=== PATIENT | male | born 1960 | race Two or more races ===

== ENCOUNTER 2020-01-24 02:26 | Emergency (ER) | payer OTHER ==
[~2020-01-24] VITALS: Ht 167.6 cm; Wt 85.0 kg
[~2020-01-24 02:26] MED LIST: DIABETIC MEDS; HYDR-3965 PO; HYDR1TAB PO; IBUP-1984 PO; IBUP-812 PO; LISI-600 PO
[2020-01-24 04:12] LABS: BASOPHILS # (AUTO) 0.1 X10'3 (0-0.2); BASOPHILS % (AUTO) 0.7 % (0-1); EOSINOPHILS # (AUTO) 0.1 X10'3 (0-0.9); EOSINOPHILS % (AUTO) 1.2 % (0-6); HEMATOCRIT 25.4 % (42.0-52.0); HEMOGLOBIN 8.6 g/dl (14.0-17.9); LYMPHOCYTES # (AUTO) 1.2 X10'3 (1.1-4.8); LYMPHOCYTES % (AUTO) 14.4 % (21-51); MEAN CORPUSCULAR HEMOGLOBIN 32.5 PG (27.0-31.0); MEAN CORPUSCULAR HGB CONC 33.8 g/dL (33.0-36.5); MEAN PLATELET VOLUME 9.7 FL (7.4-10.4); MONOCYTES # (AUTO) 0.9 X10'3 (0-0.9); MONOCYTES % (AUTO) 10.2 % (2-12); NEUTROPHILS # (AUTO) 6.2 X10'3 (1.8-7.7); NEUTROPHILS % (AUTO) 73.5 % (42-75); PLATELET COUNT 205 X10'3 (140-440); RED BLOOD COUNT 2.65 X10'6 (4.70-6.10); RED CELL DISTRIBUTION WIDTH 13.5 % (11.5-14.5); WHITE BLOOD COUNT 8.4 X10'3 (4.5-11.0)
[2020-01-24 04:19] LABS: ALANINE AMINOTRANSFERASE 25 U/L (12-78); ALBUMIN 3.4 G/DL (3.4-5.0); ALBUMIN/GLOBULIN RATIO 0.8 (1.1-1.5); ALKALINE PHOSPHATASE 106 IU/L (46-116); ANION GAP 8 (8-16); ASPARTATE AMINO TRANSFERASE 12 U/L (10-37); BILIRUBIN,TOTAL 0.5 MG/DL (0.1-1.0); BLOOD UREA NITROGEN 66 MG/DL (7-18); BUN/CREATININE RATIO 6.5 (5.4-32.0); CALCIUM 9.2 MG/DL (8.5-10.1); CHLORIDE 105 MMOL/L (99-107); CREATININE 10.19 MG/DL (0.60-1.10); GLUCOSE 150 MG/DL (70-104); MAGNESIUM 2.4 MG/DL (1.5-2.4); PHOSPHORUS 3.2 MG/DL (2.3-4.5); SODIUM 141 MMOL/L (135-145); TOTAL CARBON DIOXIDE 28.2 MMOL/L (24-32); TOTAL PROTEIN 7.6 G/DL (6.4-8.2); eGFR 5 ML/MIN
[2020-01-24 05:32] VITALS: BP 158/67
== END 2020-01-24 05:27 | disposition home or self-care (01) ==
LOC: ER 02:27
DX: N18.6 End stage renal disease (principal); E87.5 Hyperkalemia; R06.00 Dyspnea, unspecified; E11.22 Type 2 diabetes mellitus with diabetic chronic kidney disease; I12.0 Hypertensive chronic kidney disease with stage 5 chronic kidney disease or end stage renal disease; Z79.899 Other long term (current) drug therapy; Z99.2 Dependence on renal dialysis
CPT/HCPCS: 36415; 80053; 83735; 84100; 85025; 93005; 99284

== ENCOUNTER 2023-07-16 17:00 | Inpatient (IN) | payer MEDICAID, OTHER ==
[~2023-07-16] VITALS: Ht 172.7 cm; Wt 85.0 kg
[~2023-07-16 17:00] MED LIST changes: +CefTRIAXone/D5W-Rocephin 1gm 50 ML IV SCH; -HYDR1TAB PO; -LISI-600 PO; +LISI20TA28 PO
[2023-07-16 19:10] LABS: BILIRUBIN,URINE NEGATIVE (Neg); CLARITY,URINE CLEAR (Clear); COLOR,URINE YELLOW (Yellow); GLUCOSE, URINE NEGATIVE (Neg); KETONES,URINE NEGATIVE (Neg); LEUKOCYTE ESTERASE ,URINE NEGATIVE (Neg); NITRITES, URINE NEGATIVE (Neg); OCCULT BLOOD,URINE NEGATIVE (Neg); PH,URINE 8.5 (4.8-8.0); PROTEIN,URINE 30 mg/dl (Neg); UROBILINOGEN,URINE 0.2 E.U/dL (0.2-1.0)
[2023-07-16 19:11] LABS: UA COLLECTION TYPE CLN CATCH MIDSTREAM
[2023-07-16 19:18] LABS: ALBUMIN 3.4 G/DL (3.4-5.0); ANION GAP 9 (8-16); BLOOD UREA NITROGEN 70 MG/DL (7-18); BUN/CREATININE RATIO 6.7 (10.0-20.0); CALCIUM 7.9 MG/DL (8.5-10.1); CHLORIDE 100 MMOL/L (99-107); CREATININE 10.47 MG/DL (0.60-1.10); GLUCOSE 148 MG/DL (70-104); LIPASE 82 U/L (16-77); MAGNESIUM 2.4 MG/DL (1.5-2.4); POTASSIUM 5.4 MMOL/L (3.5-5.1); SODIUM 136 MMOL/L (135-145); TOTAL CARBON DIOXIDE 26.6 MMOL/L (24-32); eCRCL 7 ML/MIN; eGFR 5 ML/MIN
[2023-07-16 19:18] LABS: BACTERIA,URINE NONE SEEN /HPF (Neg); RBC,URINE NONE SEEN /HPF (0-2); SQUAMOUS EPITHELIAL CELL,UR NONE SEEN /LPF (FEW); WBC,URINE 0-4 /HPF (0-4)
[2023-07-16] MEDS: amLODIPine 5mg tablet PO ONE ×2 (20:04→23:13)
[2023-07-16 20:53] LABS: BASOPHILS # (AUTO) 0.2 X10'3 (0-0.2); BASOPHILS % (AUTO) 2.6 % (0-1); EOSINOPHILS # (AUTO) 0.6 X10'3 (0-0.9); EOSINOPHILS % (AUTO) 7.8 % (0-6); HEMATOCRIT 25.5 % (42.0-52.0); HEMOGLOBIN 8.4 g/dl (14.0-17.9); LYMPHOCYTES % (AUTO) 12.6 % (21-51); MEAN CORPUSCULAR HEMOGLOBIN 32.5 PG (27.0-31.0); MEAN CORPUSCULAR HGB CONC 32.9 g/dL (33.0-36.5); MEAN CORPUSCULAR VOLUME 98.8 FL (78-98); MEAN PLATELET VOLUME 9.6 FL (7.4-10.4); MONOCYTES # (AUTO) 0.7 X10'3 (0-0.9); MONOCYTES % (AUTO) 8.6 % (2-12); NEUTROPHILS # (AUTO) 5.5 X10'3 (1.8-7.7); NEUTROPHILS % (AUTO) 68.4 % (42-75); PLATELET COUNT 185 X10'3 (140-440); RED BLOOD COUNT 2.58 X10'6 (4.70-6.10); RED CELL DISTRIBUTION WIDTH 16.2 % (11.5-14.5)
[2023-07-16 21:02] LABS: ANISOCYTOSIS 1+; PLATELET ESTIMATE NORMAL; TOTAL CELLS COUNTED 100
[2023-07-16] MEDS: ipratropium/albuterol 3ml nebule NEB ONE (22:47)
[2023-07-16 22:54] VITALS: PULSE 67; O2SAT 94
[2023-07-16] MEDS ORDERED: magnesium 2GM in 50ml NS 50 ML IV PRN (22:55)
[2023-07-16] MEDS ORDERED: magnesium 4gm in 100ml NS 100 ML IV PRN (22:55)
[2023-07-16] MEDS ORDERED: mag hydrox/Alum hydrox/simeth 30ml oral suspension PO PRN (22:55)
[2023-07-16] MEDS ORDERED: potassium Cl 20 mEq SR tablet PO PRN ×2 (22:55)
[2023-07-16] MEDS ORDERED: magnesium Cl slow-release 64mg tablet PO PRN (22:55)
[2023-07-16] MEDS ORDERED: ondansetron/PF 4mg/2ml inj IV PRN (22:55)
[2023-07-16] MEDS ORDERED: potassium Cl 40MEQ/1/2NS 520ml 520 ML IV PRN (22:55)
[2023-07-16] MEDS ORDERED: acetaminophen 325mg tablet PO PRN (22:55)
[2023-07-16 22:57] VITALS: PULSE 69; RESP 18; O2SAT 94
[2023-07-16] MEDS ORDERED: hyDRALAzine 10mg tablet PO SCH (23:00)
[2023-07-16] MEDS ORDERED: ipratropium/albuterol 3ml nebule NEB PRN (23:00)
[2023-07-16] MEDS: CefTRIAXone 2gm/D5W 50ml BAG 50 ML IV ONE (23:01)
[2023-07-16] MEDS: furosemide 10 MG/1 ML 10ml inj IV ONE (23:22)
[2023-07-16 23:29] LABS: HEMOGLOBIN A1C 5.3 % (4.5-6.2)
[2023-07-16] MEDS ORDERED: DEXTROSE 15 GM of carb/4 tabs (each vial/BOTTLE has 4 tablets) PO PRN ×2 (23:45)
[2023-07-16] MEDS ORDERED: dextrose 50%-water 50ml dispensing syringe IV PRN ×2 (23:45)
[2023-07-16] MEDS ORDERED: glucagon, human recombinant 1mg kit SUBCUT PRN (23:45)
[2023-07-17] VITALS (16 sets, daily range): BP systolic 153–198; BP diastolic 56–112; PULSE 66–83; RESP 14–22; TEMP 97.9–98.4; O2SAT 92–98
[2023-07-17] MEDS: methylPREDNISolone sod succ 125mg/2ml vial IV ONE (00:08)
[2023-07-17] MEDS: azithromycin/NS 500mg/250ml 250 ML IV SCH ×2 (00:11→18:43)
[2023-07-17] MEDS ORDERED: HYDR25TA90 PO (01:46)
[2023-07-17] MEDS ORDERED: AMLO10TA5 PO (01:46)
[2023-07-17] MEDS: hydrALAZINE 25 MG tablet PO SCH (01:55)
[2023-07-17 07:49] LABS: BASOPHILS # (AUTO) 0.1 X10'3 (0-0.2); EOSINOPHILS % (AUTO) 0.3 % (0-6); HEMATOCRIT 24.9 % (42.0-52.0); HEMOGLOBIN 8.4 g/dl (14.0-17.9); LYMPHOCYTES # (AUTO) 0.2 X10'3 (1.1-4.8); LYMPHOCYTES % (AUTO) 3.3 % (21-51); MEAN CORPUSCULAR HEMOGLOBIN 33.2 PG (27.0-31.0); MEAN CORPUSCULAR HGB CONC 33.9 g/dL (33.0-36.5); MEAN CORPUSCULAR VOLUME 97.9 FL (78-98); MEAN PLATELET VOLUME 9.9 FL (7.4-10.4); MONOCYTES % (AUTO) 0.6 % (2-12); NEUTROPHILS % (AUTO) 94.8 % (42-75); PLATELET COUNT 174 X10'3 (140-440); RED BLOOD COUNT 2.55 X10'6 (4.70-6.10); RED CELL DISTRIBUTION WIDTH 16.1 % (11.5-14.5); WHITE BLOOD COUNT 7.4 X10'3 (4.5-11.0)
[2023-07-17] MEDS ORDERED: GLIM2TAB6 PO (07:58)
[2023-07-17] MEDS ORDERED: AMA1T PO (07:58)
[2023-07-17] MEDS ORDERED: K and/or MAG REPLACEMENT MC SCH (08:00)
[2023-07-17] MEDS ORDERED: CefTRIAXone/D5W-Rocephin 1gm 50 ML IV SCH (08:00)
[2023-07-17] MEDS ORDERED: furosemide 10 MG/1 ML 10ml inj IV SCH (08:00)
[2023-07-17 08:19] LABS: ALANINE AMINOTRANSFERASE 29 U/L (12-78); ALBUMIN 3.4 G/DL (3.4-5.0); ALBUMIN/GLOBULIN RATIO 0.7 (1.1-1.5); ALKALINE PHOSPHATASE 160 IU/L (46-116); ANION GAP 13 (8-16); ASPARTATE AMINO TRANSFERASE 24 U/L (10-37); BILIRUBIN,TOTAL 0.8 MG/DL (0.1-1.0); BLOOD UREA NITROGEN 84 MG/DL (7-18); BUN/CREATININE RATIO 7.3 (10.0-20.0); CALCIUM 8.4 MG/DL (8.5-10.1); CHLORIDE 98 MMOL/L (99-107); CHOL/HDL RATIO 3.2 (0.00-4.99); CHOLESTEROL 128 MG/DL (0-200); CREATININE 11.58 MG/DL (0.60-1.10); GLUCOSE 219 MG/DL (70-104); HDL CHOLESTEROL 40 MG/DL (35-60); LDL CHOLESTEROL 70 MG/DL (50-100); MAGNESIUM 2.5 MG/DL (1.5-2.4); PHOSPHORUS 5.2 MG/DL (2.3-4.5); SODIUM 135 MMOL/L (135-145); TOTAL CARBON DIOXIDE 23.6 MMOL/L (24-32); TOTAL PROTEIN 8.5 G/DL (6.4-8.2); TRIGLYCERIDES 70 MG/DL (20-135); eCRCL 6 ML/MIN; eGFR 4 ML/MIN
[2023-07-17 08:20] LABS: POTASSIUM 6.7 MMOL/L (3.5-5.1)
[2023-07-17] MEDS: CALCIUM GLUC 1gm/50ml NACL,iso 50 ML IV ONE (08:35)
[2023-07-17] MEDS: FERROUS SULFATE 142 MG TABLET.ER (45mg elemental) PO SCH (08:40)
[2023-07-17] MEDS: heparin, porcine 5000 units/ml vial SQ SCH (08:40)
[2023-07-17] MEDS: folic acid 1mg tablet PO SCH (08:40)
[2023-07-17] MEDS: docusate sod 100mg capsule PO SCH (08:43)
[2023-07-17] MEDS: INSULIN LISPRO 100 UNIT/ML INSULN.PEN MULTI-DOSE SQ SCH ×2 (09:00→09:57)
[2023-07-17] MEDS ORDERED: albumin (human) 25% 100ml IV 100 ML IV PRN (10:20)
[2023-07-17] MEDS: mannitol 12.5gm/50mL VIAL IV ONE (12:42)
[2023-07-17] MEDS: heparin 1,000unit/ml 10ml vial 10 ML IV ONE (12:48)
[2023-07-17] MEDS: heparin 1,000 units/ml 10ml inj IV ONE (12:48)
[2023-07-17] MEDS: heparin 1,000 units/ml 10ml inj HE ONE ×2 (12:55)
[2023-07-17] MEDS: EPOETIN ALFA-EPBX 20,000 UNIT/ML 1 ML MDV IV ONE (12:56)
[2023-07-17] MEDS: CefTRIAXone/D5W-Rocephin 1gm 50 ML IV SCH (17:30)
[2023-07-17] MEDS ORDERED: insulin glargine (Lantus) pen - multi-dose SQ SCH (21:00)
[2023-07-17] MEDS: amLODIPine 5mg tablet PO ONE (21:07)
[2023-07-17] MEDS: hydrALAZINE 25 MG tablet PO ONE (22:31)
[2023-07-18] VITALS (24 sets, daily range): BP systolic 131–181; BP diastolic 51–96; PULSE 62–117; RESP 12–18; TEMP 97.9–99.1; O2SAT 93–100
[2023-07-18] MEDS: hydrALAZINE 25 MG tablet PO SCH (00:59)
[2023-07-18] MEDS ORDERED: albumin (human) 25% 100ml IV 100 ML IV PRN (06:45)
[2023-07-18 06:59] LABS: BASOPHILS # (AUTO) 0.1 X10'3 (0-0.2); BASOPHILS % (AUTO) 1.1 % (0-1); EOSINOPHILS % (AUTO) 0.6 % (0-6); HEMATOCRIT 24.1 % (42.0-52.0); HEMOGLOBIN 8.2 g/dl (14.0-17.9); LYMPHOCYTES # (AUTO) 1.2 X10'3 (1.1-4.8); LYMPHOCYTES % (AUTO) 13.8 % (21-51); MEAN CORPUSCULAR HEMOGLOBIN 33.2 PG (27.0-31.0); MEAN CORPUSCULAR HGB CONC 34.2 g/dL (33.0-36.5); MEAN CORPUSCULAR VOLUME 97.1 FL (78-98); MEAN PLATELET VOLUME 10.1 FL (7.4-10.4); MONOCYTES # (AUTO) 0.8 X10'3 (0-0.9); MONOCYTES % (AUTO) 8.7 % (2-12); NEUTROPHILS # (AUTO) 6.6 X10'3 (1.8-7.7); NEUTROPHILS % (AUTO) 75.8 % (42-75); PLATELET COUNT 179 X10'3 (140-440); RED BLOOD COUNT 2.48 X10'6 (4.70-6.10); RED CELL DISTRIBUTION WIDTH 15.2 % (11.5-14.5); WHITE BLOOD COUNT 8.7 X10'3 (4.5-11.0)
[2023-07-18 07:22] LABS: % IRON SATURATION 63 % (11-46); IRON 100 UG/DL (53-167); TOTAL IRON BINDING CAPACITY 160 UG/DL (259-388)
[2023-07-18] MEDS ORDERED: nitroGLYCERIN 0.4mg SUBLingual tab SL PRN (07:35)
[2023-07-18] MEDS ORDERED: aminophylline 250mg/10ml inj. IV PRN (07:35)
[2023-07-18] MEDS ORDERED: metoprolol tartrate 1mg/ml inj IV PRN (07:35)
[2023-07-18 07:47] LABS: ALANINE AMINOTRANSFERASE 22 U/L (12-78); ALBUMIN 3.2 G/DL (3.4-5.0); ALBUMIN/GLOBULIN RATIO 0.7 (1.1-1.5); ALKALINE PHOSPHATASE 145 IU/L (46-116); ANION GAP 8 (8-16); ASPARTATE AMINO TRANSFERASE 16 U/L (10-37); BILIRUBIN,TOTAL 0.7 MG/DL (0.1-1.0); BLOOD UREA NITROGEN 52 MG/DL (7-18); BUN/CREATININE RATIO 7.4 (10.0-20.0); CALCIUM 8.1 MG/DL (8.5-10.1); CHLORIDE 97 MMOL/L (99-107); CREATININE 7.04 MG/DL (0.60-1.10); GLUCOSE 153 MG/DL (70-104); MAGNESIUM 2.1 MG/DL (1.5-2.4); PHOSPHORUS 4.7 MG/DL (2.3-4.5); POTASSIUM 4.8 MMOL/L (3.5-5.1); SODIUM 133 MMOL/L (135-145); TOTAL PROTEIN 8.1 G/DL (6.4-8.2); eCRCL 10 ML/MIN; eGFR 8 ML/MIN
[2023-07-18 07:48] LABS: FERRITIN 1614 NG/ML (26-388)
[2023-07-18] MEDS ORDERED: sevelamer carbonate 800mg tablet PO SCH ×3 (08:30→12:30)
[2023-07-18] MEDS: amLODIPine 5mg tablet PO SCH (08:56)
[2023-07-18] MEDS: metoprolol succinate 25mg (24-HOUR) SR. Tablet PO SCH (08:57)
[2023-07-18] MEDS: sevelamer carbonate 800mg tablet PO SCH (09:55)
[2023-07-18] MEDS: regadenoson 0.4mg/5ml syringe IV PRN (13:38)
[2023-07-18] MEDS: heparin 1,000unit/ml 10ml vial 10 ML IV ONE (17:07)
[2023-07-18] MEDS: heparin 1,000 units/ml 10ml inj IV ONE (17:07)
[2023-07-19] VITALS (7 sets, daily range): BP systolic 145–162; BP diastolic 76–88; PULSE 68–86; RESP 16; TEMP 97.9–98.9; O2SAT 94–99
[2023-07-19 06:02] LABS: ALANINE AMINOTRANSFERASE 14 U/L (12-78); ALBUMIN/GLOBULIN RATIO 0.7 (1.1-1.5); ALKALINE PHOSPHATASE 128 IU/L (46-116); ANION GAP 11 (8-16); ASPARTATE AMINO TRANSFERASE 15 U/L (10-37); BILIRUBIN,TOTAL 0.7 MG/DL (0.1-1.0); BLOOD UREA NITROGEN 45 MG/DL (7-18); BUN/CREATININE RATIO 7.2 (10.0-20.0); CALCIUM 8.4 MG/DL (8.5-10.1); CHLORIDE 99 MMOL/L (99-107); CREATININE 6.22 MG/DL (0.60-1.10); GLUCOSE 124 MG/DL (70-104); MAGNESIUM 2.3 MG/DL (1.5-2.4); PHOSPHORUS 4.8 MG/DL (2.3-4.5); POTASSIUM 4.4 MMOL/L (3.5-5.1); SODIUM 136 MMOL/L (135-145); TOTAL CARBON DIOXIDE 25.7 MMOL/L (24-32); TOTAL PROTEIN 7.6 G/DL (6.4-8.2); eCRCL 12 ML/MIN; eGFR 9 ML/MIN
[2023-07-19 08:27] LABS: WHITE BLOOD COUNT 7.1 X10'3 (4.5-11.0)
[2023-07-19 08:29] LABS: HEMATOCRIT 24.4 % (42.0-52.0); MEAN CORPUSCULAR HEMOGLOBIN 31.8 PG (27.0-31.0); MEAN CORPUSCULAR HGB CONC 32.8 g/dL (33.0-36.5); MEAN PLATELET VOLUME 10.2 FL (7.4-10.4); PLATELET COUNT 190 X10'3 (140-440); RED BLOOD COUNT 2.52 X10'6 (4.70-6.10); RED CELL DISTRIBUTION WIDTH 15.2 % (11.5-14.5)
[2023-07-19 09:00] LABS: PLATELET ESTIMATE NORMAL; TOTAL CELLS COUNTED 100
[2023-07-19 09:01] LABS: HYPOCHROMASIA 1+; SCHISTOCYTES FEW
[2023-07-19] MEDS: metoprolol succinate 25mg (24-HOUR) SR. Tablet PO SCH (10:09)
[2023-07-19] MEDS: apixaban 2.5mg tablet PO SCH (10:10)
[2023-07-19] MEDS ORDERED: METO-395 PO (15:42)
[2023-07-19] MEDS ORDERED: CEFD300C3 PO (15:42)
[2023-07-19] MEDS ORDERED: APIX2.5T PO (15:46)
[2023-07-19] MEDS: azithromycin 250mg tablet PO SCH (16:20)
[2023-07-19 19:27] LABS: HBSAG SCREEN Negative (Negative)
== END 2023-07-19 17:27 | disposition home or self-care (01) | DRG 133 ==
LOC: ER 17:01 → ED HOLD 22:58 → EDBEDREQ 07-17 01:23 → PCU 3S 07-17 07:39
PROVIDERS: ADMIT Internal Medicine Critical Care Medicine; ATTEND Internal Medicine
PROC: 5A1D70Z Performance of Urinary Filtration, Intermittent, Less than 6 Hours Per Day (ICD-10-PCS; principal; 2023-07-17)
PROC: 5A1D70Z Performance of Urinary Filtration, Intermittent, Less than 6 Hours Per Day (ICD-10-PCS; 2023-07-18)
PROC: 4A12XM4 Monitoring of Cardiac Stress, External Approach (ICD-10-PCS; 2023-07-18)
PROC: 3E033HZ Introduction of Radioactive Substance into Peripheral Vein, Percutaneous Approach (ICD-10-PCS; 2023-07-18)
DX: J96.01 Acute respiratory failure with hypoxia (principal); I50.31 Acute diastolic (congestive) heart failure; N18.6 End stage renal disease; J18.9 Pneumonia, unspecified organism; E11.22 Type 2 diabetes mellitus with diabetic chronic kidney disease; D72.829 Elevated white blood cell count, unspecified; E87.5 Hyperkalemia; D64.9 Anemia, unspecified; I48.91 Unspecified atrial fibrillation; N40.0 Benign prostatic hyperplasia without lower urinary tract symptoms; K80.20 Calculus of gallbladder without cholecystitis without obstruction; I13.2 Hypertensive heart and chronic kidney disease with heart failure and with stage 5 chronic kidney disease, or end stage renal disease; T39.395A Adverse effect of other nonsteroidal anti-inflammatory drugs [NSAID], initial encounter; Y92.89 Other specified places as the place of occurrence of the external cause; Z99.2 Dependence on renal dialysis; Z91.199 Patient's noncompliance with other medical treatment and regimen due to unspecified reason; Z90.49 Acquired absence of other specified parts of digestive tract; Z79.84 Long term (current) use of oral hypoglycemic drugs; Z79.899 Other long term (current) drug therapy
CPT/HCPCS: 36415; 71045; 74176; 76700; 78452; 80048; 80053; 80061; 81001; 82728; 82948; 83036; 83540; 83550; 83605; 83690; 83735; 84100; 84132; 84145; 84466; 84484; 85007; 85025; 87040; 87340; 93005; 93017; 93306; 94640; 94760; 99285; A6449; A9500; C2617; E1594; G0257; G0378; J0456; J0696; J1644; J1815; J2150; J2785; J2919; J7030; J7040; Q4081